=== PATIENT | female | born 1990 | race African-American/Black ===

== ENCOUNTER 2022-04-12 07:24 | Emergency (ER) | payer OTHER ==
[~2022-04-12] VITALS: Ht 167.6 cm; Wt 137.0 kg
[2022-04-12] MEDS ORDERED: KETOROLAC 60MG/2ML VIAL IM ONE (11:45)
[2022-04-12] MEDS ORDERED: NAPR-681 MT (12:15)
[2022-04-12] MEDS ORDERED: LIDO1ADH23 TP (12:15)
[2022-04-12 12:18] VITALS: BP 151/90
== END 2022-04-12 12:18 | disposition home or self-care (01) ==
LOC: ER 08:48
DX: R07.81 Pleurodynia (principal); M25.511 Pain in right shoulder; R07.0 Pain in throat; G89.11 Acute pain due to trauma; V49.49XA Driver injured in collision with other motor vehicles in traffic accident, initial encounter; Y93.89 Activity, other specified; Y92.411 Interstate highway as the place of occurrence of the external cause
CPT/HCPCS: 71045; 81025; 93005; 96372; 99283; J1885